=== PATIENT | female | born 1975 | race Caucasian/White ===

== ENCOUNTER 2022-02-16 14:36 | Emergency (ER) | payer BC, SELFPAY ==
--- NOTE | 2022-02-16 14:39 | ED.EAR ---
HPI - Ear Problem General Chief complaint: Ear Stated complaint: ear pain Time Seen by Provider: 02/16/22 14:39 Source: patient Mode of arrival: ambulatory Limitations: no limitations History of Present Illness HPI Narrative: Mrs. Chacko is a 47-year-old female patient presenting to the clinic today with complaints of left ear pain, nasal congestion, sinus pressure, headache, and swelling of the left neck glands x1 week. She reports has felt feverish however has not checked her temperature. 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 MD Complaint: ear pain Related Data Home Medications Medication Instructions Recorded Confirmed furosemide 20 mg DIRECTED 02/16/22 02/16/22 Allergies Allergy/AdvReac Type Severity Reaction Status Date / Time cephalexin [From Keflex] Allergy Rash Verified 02/16/22 15:09 codeine Allergy Anaphylactic Verified 02/16/22 15:09 Shock Penicillins Allergy Anaphylactic Verified 02/16/22 15:09 Shock Sulfa (Sulfonamide Allergy Rash Verified 02/16/22 15:09 Antibiotics) Review of Systems Review of Systems: Pertinent positives per HPI. Patient denies any fever, chills, rash, headache, visual changes, dizziness, cough, runny nose, sore throat, shortness of breath, chest pain, palpitations, nausea, vomiting, diarrhea, constipation, abdominal pain, or any urinary issues. PMFSH Comments At the time of my signature, I reviewed and agree with the nursing past medical, surgical, social, and family history. There is no relevant family history pertinent to the patient complaint. Exam Narrative: General: Well-developed, well nourished, in no apparent distress Head: Normocephalic, atraumatic Eyes: Pupils equally round and reactive to light bilaterally, EOM intact, sclera and conjunctive clear, no discharge, lids normal Ears: Right TMs intact and clear, right ear canals clear, no drainage, left TM intact and mildly red, right ear canal swollen and red with white exudate, grossly hearing normal. Nose: Nares patent, bloody green nasal discharge, severe inflammation to the anterior and posterior turbinates, sinus tenderness with palpation over the frontal and maxillary sinuses Mouth: Oropharynx without lesions or masses, good dentition, MMM. Postnasal drip Neck: Supple, trachea midline, no enlargement of anterior or posterior cervical nodes, no thyroid masses or goiter palpable. Cardio: Regular rate and rhythm, s1 and s2 normal, no murmur appreciated. Resp: Clear to auscultation bilaterally anteriorly and posteriorly, no rhonchi, rales, wheezing or rubs Course Course Emergency Course: Portions of this record may have been created with voice recognition software. Level of Care: Express Care Visit Vital Signs Vital signs: Vital signs reviewed Medical Decision Making MDM Narrative Medical decision making narrative: At the time of visit patient is resting comfortably on the exam table. Her left ear canal is swollen and red with white exudate as well as she has sinus pressure and tenderness with green nasal discharge. I suspect that she has an acute otitis externa and acute rhinosinusitis. I will treat with a course of doxycycline as she is allergic to amoxicillin as well as give her a prescription for some ofloxacin eardrops. Supportive measures were discussed with patient she voiced understanding of discharge instructions. Differential Diagnosis Differential Diagnosis: Otitis media, otitis externa, rhinosinusitis, upper respiratory infection, eustachian tube dysfunction, ruptured tympanic membrane Discharge Plan Discharge Clinical Impression: Acute bacterial rhinosinusitis Otitis externa Qualifiers: Otitis externa type: diffuse Chronicity: acute Laterality: left Qualified Code(s): H60.312 - Diffuse otitis externa, left ear Patient Disposition: Home, Self-Care Condition: Stable Instructions: Antibiotic Form, Swimmer's Ear (ED), Rhinosinusitis (E
[2022-02-16 14:45] VITALS: BP 150/79; PULSE 86; RESP 16; TEMP 37.1; O2SAT 99
== END 2022-02-16 15:02 | disposition home or self-care (01) ==
PROVIDERS: Emergency Provider Nurse Practitioner Family
DX: J01.90 Acute sinusitis, unspecified (principal); B96.89 Other specified bacterial agents as the cause of diseases classified elsewhere
CPT/HCPCS: 99213; G0463

== ENCOUNTER 2022-02-28 13:03 | Emergency (ER) | payer BC, SELFPAY ==
--- NOTE | 2022-02-28 13:05 | ED.URI ---
HPI - URI/Sore Throat General Chief Complaint: Upper Respiratory Infection Stated Complaint: uri Time Seen by Provider: 02/28/22 13:05 Source: patient Mode of arrival: ambulatory Limitations: no limitations History of Present Illness HPI Narrative: Ms. Chacko is a 47-year-old female patient presenting to the clinic today with complaints of ongoing sinus infection and left ear pain. She reports she was seen by myself approximately 2 weeks ago and was given a prescription for doxycycline and ofloxacin eardrops for acute rhinosinusitis and left otitis externa. She reports that the left ear and sinusitis improved but she has been without antibiotics for 4 days and feels as though her symptoms are coming back. She reports a popping sensation in her left ear that is driving her crazy as well as sinus pressure and dizziness that is occurring again. She is requesting another round of antibiotics as well as an ears nose and throat referral. MD elicited complaint: sore throat and nasal congestion Related Data Home Medications Medication Instructions Recorded Confirmed furosemide 20 mg DIRECTED 02/16/22 02/28/22 estradiol 1 applic VAGINAL DIRECTED 02/28/22 02/28/22 gabapentin 100 mg PO DIRECTED 02/28/22 02/28/22 Allergies Allergy/AdvReac Type Severity Reaction Status Date / Time cephalexin [From Keflex] Allergy Rash Verified 02/28/22 13:09 codeine Allergy Anaphylactic Verified 02/28/22 13:09 Shock Penicillins Allergy Anaphylactic Verified 02/28/22 13:09 Shock Sulfa (Sulfonamide Allergy Rash Verified 02/28/22 13:09 Antibiotics) Review of Systems Review of Systems: Pertinent positives per HPI. Patient denies any fever, chills, rash, headache, visual changes, cough, shortness of breath, chest pain, palpitations, nausea, vomiting, diarrhea, constipation, abdominal pain, or any urinary issues. PMFSH Comments At the time of my signature, I reviewed and agree with the nursing past medical, surgical, social, and family history. There is no relevant family history pertinent to the patient complaint. Exam Narrative: General: Well-developed, well nourished, in no apparent distress Head: Normocephalic, atraumatic Eyes: Pupils equally round and reactive to light bilaterally, EOM intact, sclera and conjunctive clear, no discharge, lids normal Ears: Right TMs intact and clear, left TM intact with mild bulging, right ear canals clear, left ear canal mild swelling with redness and some white exudate, grossly hearing normal. Nose: Nares patent, no discharge, moderate to severe inflammation with dried blood up into the bilateral posterior turbinates, sinus tenderness with palpation over the maxillary and frontal sinuses. Mouth: Oral pharynx without lesions or masses, good dentition, MMM. Postnasal drip Neck: Supple, trachea midline, no enlargement of anterior or posterior cervical nodes, no thyroid masses or goiter palpable. Cardio: Regular rate and rhythm, s1 and s2 normal, no murmur appreciated. Resp: Clear to auscultation bilaterally, no rhonchi, rales, wheezing or rubs Course Course Emergency Course: Portions of this record may have been created with voice recognition software. Level of Care: Express Care Visit Vital Signs Vital signs: Vital signs reviewed MDM - URI/Sore Throat MDM Narrative Medical decision making narrative: At the time of assessment patient is resting comfortably on the exam table. She reports dizziness and sinus pressure along with blowing bloody nasal drainage as well as popping in her left ear. Exam shows that she has sinusitis as well as resolving left otitis externa with eustachian tube dysfunction. Supportive measures were discussed and prescriptions were sent to her pharmacy. Work note was given. Discharge instructions were reviewed with patient she voiced understanding of the instructions and agreed with treatment plan. Differential Diagnosis Differential diagnosis: Likely upper re
[2022-02-28 13:10] VITALS: BP 136/71; PULSE 77; RESP 16; TEMP 37.4; O2SAT 97
[2022-02-28 13:12] VITALS: BP 136/71; PULSE 77; RESP 16; TEMP 37.4; O2SAT 97
== END 2022-02-28 13:30 | disposition home or self-care (01) ==
PROVIDERS: Emergency Provider Nurse Practitioner Family
DX: J01.90 Acute sinusitis, unspecified (principal); H69.92 Unspecified Eustachian tube disorder, left ear; H60.312 Diffuse otitis externa, left ear
CPT/HCPCS: 99213; G0463

== ENCOUNTER 2022-05-23 10:14 | Emergency (ER) | payer BC, SELFPAY ==
--- NOTE | ~2022-05-23 | XR_ITS ---
EXAMINATION: XR ankle RT min 3V DATE: 05/23/2022 11:15 INDICATION: Right ankle pain. Injury. TECHNIQUE: 4 views of right ankle were obtained. COMPARISON: None. FINDINGS: Bone alignment is normal. No fracture. Joint spaces are normal. There is ankle soft tissue swelling. IMPRESSION: 1. No fracture. Reviewed, dictated and finalized at location A. IMPRESSION: 1. No fracture.
--- NOTE | ~2022-05-23 | XR_ITS ---
EXAMINATION: XR foot RT min 3V DATE: 05/23/2022 11:15 INDICATION: Right foot pain. Injury. TECHNIQUE: 4 views of right foot were obtained. COMPARISON: None. FINDINGS: Bone alignment is normal. No fracture. There is mild osteoarthritis of first metatarsophala ngeal joint. IMPRESSION: 1. No fracture. Reviewed, dictated and finalized at location A. IMPRESSION: 1. No fracture.
[2022-05-23 10:34] VITALS: BP 131/83; PULSE 90; RESP 16; TEMP 37.6; O2SAT 99
--- NOTE | 2022-05-23 11:26 | ED.LOWEXIN ---
HPI - Extremity Injury (Lower) General Chief Complaint: Extremity Injury, Lower Stated Complaint: right ankle pain Time Seen by Provider: 05/23/22 11:26 Source: patient Mode of arrival: ambulatory Limitations: no limitations History of Present Illness HPI Narrative: 47 yo F presents with c/o pain and swelling to R ankle. Last night was walking out to her front porch to grab deliveries from [employer] and her R ankle rolled causing her to fall onto the boxes. Did not hit head, no LOC. Was able to get up on her own. States she elevated ankle all night and swelling better today. Taking aleve to treat pain. ROM decreased due to pain, ambulatory with limp. Distal NV intact. All systems reviewed and negative except as noted above. Related Data Home Medications Medication Instructions Recorded Confirmed furosemide 20 mg tablet 20 mg DIRECTED 02/16/22 02/28/22 estradiol 0.01% (0.1 mg/gram) 1 applic vaginal DIRECTED 02/28/22 02/28/22 vaginal cream Allergies Allergy/AdvReac Type Severity Reaction Status Date / Time cephalexin [From Keflex] Allergy Rash Verified 02/28/22 13:09 codeine Allergy Anaphylactic Verified 02/28/22 13:09 Shock Penicillins Allergy Anaphylactic Verified 02/28/22 13:09 Shock Sulfa (Sulfonamide Allergy Rash Verified 02/28/22 13:09 Antibiotics) Review of Systems Review of Systems: CONSTITUTIONAL: Denies fever, chills, or sweats. EYES: Denies visual changes, redness, or discharge. ENT: Denies rhinorrhea, congestion, sore throat, or otalgia. CARDIOVASCULAR: Denies chest pain, palpitations, or edema. RESPIRATORY: Denies cough or dyspnea. GASTROINTESTINAL: Denies abdominal pain, nausea, vomiting, or diarrhea. GENITOURINARY: Denies dysuria or hematuria. SKIN: Denies rash or itching. MUSCULOSKELETAL: Denies back pain, joint pain, or myalgia. Reports right ankle pain and swelling. Reports pain to lateral aspect right foot, fourth and fifth toes. NEUROLOGIC: Denies headache, numbness, or weakness. PSYCHIATRIC: Denies anxiety or depression. All other systems reviewed are negative, except as documented in HPI. [facility] Comments At time of signature, agree with nursing past medical, surgical, social and family history. There is no relevant family history pertinent to the presenting complaint. Exam Narrative: GENERAL: This is a well-nourished, well-developed patient, in no apparent distress. HEAD: normocephalic, atraumatic. EYES: PERRL. Sclera clear/white. Vision is grossly intact. EARS: External ears normal NOSE: External nose normal NECK: Neck supple, non-tender without lymphadenopathy, masses or thyromegaly. CARDIOVASCULAR: Regular rate and rhythm without murmurs, gallops, or rubs. RESPIRATORY: Clear to auscultation. Breath sounds equal bilaterally. No wheezes, rales, or rhonchi. SKIN: warm, Dry, intact with no suspicious lesions or rash, good texture and turgor. NEURO: awake, alert, and oriented to person, place and time. There were no obvious focal neurologic abnormalities. EXTREMITIES: tender to lateral aspect R ankle, mild swelling. Tender to proximal 5th metatarsal, distal aspect 4th and 5th toes wtih mild swelling. Course Course Level of Care: Express Care Visit Vital Signs Vital signs: Vital Signs Temperature 37.6 C H 05/23/22 10:34 Pulse Rate 90 05/23/22 10:34 Respiratory Rate 16 05/23/22 10:34 Blood Pressure 131/83 05/23/22 10:34 Pulse Oximetry 99 05/23/22 10:34 Oxygen Delivery Room Air 05/23/22 10:34 Temperature 37.6 C H 05/23/22 10:34 Pulse Rate 90 05/23/22 10:34 Respiratory Rate 16 05/23/22 10:34 Blood Pressure 131/83 05/23/22 10:34 Pulse Oximetry 99 05/23/22 10:34 Oxygen Delivery Room Air 05/23/22 10:34 Reviewed MDM - Extremity Injury (Lower) MDM Narrative Medical decision making narrative: Discussed x-ray results with patient. There is no fracture to right foot or ankle x-ray. Placed in Viet wrap by FLOR Clark.
== END 2022-05-23 12:13 | disposition home or self-care (01) ==
PROVIDERS: Emergency Provider Nurse Practitioner Family
DX: S93.401A Sprain of unspecified ligament of right ankle, initial encounter (principal); X50.9XXA Other and unspecified overexertion or strenuous movements or postures, initial encounter; B37.2 Candidiasis of skin and nail
CPT/HCPCS: 73610; 73630; 99213; G0463

== ENCOUNTER 2025-05-15 12:28 | Emergency (ER) | payer BC, SELFPAY ==
--- NOTE | 2025-05-15 12:30 | ED_ITS ---
HPI - Skin/Abscess/Foreign Bdy General Chief complaint: Skin/Abscess/Foreign Body Stated complaint: Rash Time Seen by Provider: 05/15/25 12:45 Source: patient, RN notes reviewed and old records reviewed Mode of arrival: ambulatory Limitations: no limitations History of Present Illness HPI narrative: 50-year-old female presents to the [facility] with 1 week history of a rash. States that on Saturday she was doing work outside , concerns for plain base dermatitis. Thumbs to the lower leg, patchy red raised rash without significant increased warmth to the abdomen and chest as well as arms. Treatments prior to arrival: other (Calamine) Related Data Home Medications ?Medication ?Instructions ?Recorded ?Confirmed ?Last Taken ?Type multivitamin 1 tablet PO DAILY 12/15/24 12/15/24 Unknown History Allergies Allergy/AdvReac Type Severity Reaction Status Date / Time cephalexin (From Keflex) Allergy Rash Verified 05/15/25 12:31 codeine Allergy Anaphylactic Verified 05/15/25 12:31 Shock Penicillins Allergy Anaphylactic Verified 05/15/25 12:31 Shock Sulfa (Sulfonamide Allergy Rash Verified 05/15/25 12:31 Antibiotics) Review of Systems Review of Systems: All systems reviewed & are unremarkable except as noted in HPI and below Constitutional: Constitutional: Reports no additional constitutional complaints ENT: Reports system reviewed and no additional complaints, except as documented Cardiovascular: Cardiovascular: Reports no additional cardiovascular complaints, Denies chest pain and Denies dyspnea Respiratory: Respiratory: Reports no additional respiratory complaints, Denies chest congestion, Denies cough and Denies dyspnea Musculoskeletal: Musculoskeletal: Reports no additional musculoskeletal complaints Integumentary/Breasts: Skin/Breast: Reports as per HPI [facility] Past Medical History Medical History Edema Asthma Dysthymia Seasonal allergies Fatty liver disease, nonalcoholic Surgical History Surgical History 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 History of hysterectomy for benign disease Social History Social History Smoking status: Never smoker Alcohol intake: never Substance use: never Lack of Transportation: No Lack of Food: Never True Current Housing: I Have Housing Concerned About Future Housing: No Difficulty Paying Gas/Electric Bills: No Difficulty Paying for Meds: No Currently Unemployed: No Education: Bachelor's Degree Difficulty w/ Childcare or Family Care: No Occupation/Education: occupation 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 There is no relevant family history pertinent to the patient complaint. Exam Const: General: cooperative, healthy appearing, comfortable, no acute distress, well developed, alert and well nourished Nutritional Appearance: well nourished Orientation/consciousness: patient oriented x3 Limitations: no limitations HENMT: Head: normal to inspection Ears: hearing grossly normal bilaterally, external ears normal, TM's normal bilaterally, EAC's normal, mastoids normal and no periauricular adenopathy Mouth: Yes Normal oral and palatal mucosa present, Yes lip normal, Yes tongue normal and Yes moist mucous membranes Throat: posterior oropharynx normal, uvula midline and no uvular edema Eyes: General: appearance normal, both eyes and all related structures Alignment and Position: alignment normal Neck: Neck: normal visual inspection, full ROM, no lymphadenopathy and no meningeal signs Chest: Chest palpation & inspection: normal inspection of the chest Resp: Effort & Inspection: normal respiratory effort and able to speak in complete sentences Auscultation: clear to auscultation bilaterally, no crackles, no rales, no rhonchi and no wheezes Cardio: Rate: regular rate Skin: General skin exam: normal color and no rashes or lesions noted Rashes: rashes noted Other: Bilateral lower legs, small red raised bumps. Chest, neck red slightly raised patchy areas without vesicular changes. No cellulitic changes. Patient describes him as being very itchy Neuro: General: patient oriented x3, gait normal, moves all extremities and no meningeal signs Cognition (Neuro): normal cognition Speech: normal speech Gait exam (Neuro): Normal gait present Extrem: General: normal to inspection, full ROM, capillary refill normal and normal gait Psych: Appearance: grossly normal and well kempt Mental Status: mental status grossly normal Speech and movement: Normal speech and movement present and Clear speech present Affect: normal affect Attitude: cooperative Course Course Level of Care: Express Care Visit Vital Signs Vital signs: Vital Signs Temperature 98.0 F 05/15/25 12:37 Pulse Rate 92 05/15/25 12:37 Respiratory Rate 20 05/15/25 12:37 Blood Pressure 126/80 05/15/25 12:37 Pulse Oximetry 98 05/15/25 12:37 Oxygen Delivery Room Air 05/15/25 12:37 Temperature 98.0 F 05/15/25 12:37 Pulse Rate 92 05/15/25 12:37 Respiratory Rate 20 05/15/25 12:37 Blood Pressure 126/80 05/15/25 12:37 Pulse Oximetry 98 05/15/25 12:37 Oxygen Delivery Room Air 05/15/25 12:37 Reviewed MDM - Skin/Abscess/Foreign Bdy MDM Narrative Medical decision making narrative: Patient sitting in exam room. Patient is nontoxic, vitals stable. Patient presents with 1 week history of rash. Has tried [id number] products, cold showers with no improvement Rash appeared after doing work outside, cutting weeds Patient is appropriate for outpatient treatment with close follow-up, prescribed prednisone, discussed [id number] treatment which she verbalized understanding Discharge instructions reviewed with patient, as well as provided in writing per nursing staff. The instructions also include specific and strict return/GO TO THE ER as well as f/u information. All questions have been answered, and the patient deny any further questions with discharge and discharge plan. Some parts of this dictation were generated by voice recognition software and may contain typographical and/or grammatical inaccuracies. Differential Diagnosis Differential diagnosis: Likely abscess of skin or subcutaneous tissue, viral exanthem, urticaria, allergic reaction to drug, cellulitis, insect bites and contact dermatitis Critical Care Time Critical Care Time Critical Care Time: No Discharge Plan Discharge Clinical Impression: Irritant contact dermatitis due to plant Patient Disposition: Home Condition: Stable Instructions: Dermatitis (ED) Additional Instructions: The most important part of your care is follow up with Primary care provider. Take Benadryl 25 mg every 8 hours for itching Take Zyrtec 10mg every day Take Pepcid 20mg daily for 7 days Take the steroids starting today, take every morning. Avoid hot showers, Take cool showers. Hot showers will make rashes worse Apply cool compresses every 2-3 hours for 15 minutes Go to the ER for new or worsening symptoms such as shortness of breath. Patient Language: Irish Prescriptions: New prednisone 20 mg tablet See Rx Instructions .Route .COMPLEX Qty: 18 0RF Rx Instructions: Take 60 mg daily for 3 days, 40 mg daily for 3 days, 20 mg daily for 3 days No Action multivitamin Tablet 1 tablet PO DAILY albuterol sulfate 90 mcg/actuation aerosol powdr breath activated 2 inh inhalation Q6H PRN (Reason: shortness of breath or wheezing) Qty: 1 0RF Follow-up/Referrals: UNKNOWN,DOCTOR [Non-Staff] - Time of Disposition: 13:07
[2025-05-15 12:37] VITALS: BP 126/80; PULSE 92; RESP 20; TEMP 36.7; O2SAT 98
== END 2025-05-15 13:11 | disposition home or self-care (01) ==
PROVIDERS: Emergency Provider Nurse Practitioner; PCP Nurse Practitioner Family
DX: L24.7 Irritant contact dermatitis due to plants, except food (principal); J45.909 Unspecified asthma, uncomplicated; K76.0 Fatty (change of) liver, not elsewhere classified
CPT/HCPCS: 99213; G0463